=== PATIENT | female | born 1985 | race Caucasian/White ===

== ENCOUNTER 2017-02-08 23:29 | Emergency (ER) | payer SELFPAY ==
[~2017-02-08] VITALS: Ht 167.6 cm; Wt 70.9 kg
[2017-02-08 23:29] VITALS: BP 104/66
[~2017-02-08 23:29] MED LIST: CEPH-264 PO; DIPH25CA58 PO; METH4TAB2 PO; MULT1TAB52 PO; NAPR500T8 PO
--- NOTE | 2017-02-08 23:39 | ED.ADGEN ---
Past History Past Medical History: No Pertinent History Past Surgical History: No Surgical History Alcohol Use: Rarely Drug Use: None Adult General Chief Complaint Chief Complaint ".. I am nauseated..". " I having some burning or discomfort when I urinate.. " " Just tired..and sometime feel like I got a fever. " HPI HPI Patient is a 23 year old female who presents with the above hx and complaints of dysuria, nausea and malaise. Pt. has no vaginal discharge. Patient denies intake of bad food. Patient denies ill contacts. Patient denies any travel. Patient normally healthy. Review of Systems Review of Systems Constitutional: Subjective history of fever Eyes: Denies change in visual acuity, redness, or eye pain [] HENT: Denies nasal congestion or sore throat [] Respiratory: Denies cough or shortness of breath [] Cardiovascular: No additional information not addressed in HPI [] GI: Denies abdominal pain, vomiting, bloody stools or diarrhea [] Compliant of nausea. : hx of dysuria Musculoskeletal: Denies back pain or joint pain [] Integument: Denies rash or skin lesions [] Neurologic: Denies headache, focal weakness or sensory changes [] Endocrine: Denies polyuria or polydipsia [] Family History Family History Noncontributory Current Medications Current Medications Current Medications Medications (Trade) Dose Ordered Sig/Leila Start Time Stop Time Status Last Admin Dose Admin Ondansetron HCl (Zofran Odt) 8 mg 1X ONCE 02/09/17 00:30 02/09/17 00:31 DC 02/09/17 00:30 8 MG Trimethoprim/ Sulfamethoxazole (Bactrim Ds) 1 tab 1X ONCE 02/09/17 01:30 02/09/17 01:30 DC 02/09/17 01:10 1 TAB Allergies Allergies Allergies Coded Allergies Type Severity Reaction Last Updated Verified No Known Drug Allergies 07/29/14 No Physical Exam Physical Exam Constitutional: Well developed, well nourished, no acute distress, non-toxic appearance. [] HENT: Normocephalic, atraumatic, bilateral external ears normal, oropharynx moist, no oral exudates, nose normal. [] Eyes: PERRLA, EOMI, conjunctiva normal, no discharge. [] Neck: Normal range of motion, no tenderness, supple, no stridor. [] Cardiovascular:Heart rate regular rhythm, no murmur [] Lungs & Thorax: Bilateral breath sounds clear to auscultation [] Abdomen: Bowel sounds decreased, soft, no tenderness, no masses, no pulsatile masses. No rebound. Declined pelvic exam at this time. Skin: Warm, dry, no erythema, no rash. [] Back: No tenderness, no CVA tenderness. [] Extremities: No tenderness, no cyanosis, no clubbing, ROM intact, no edema. [] No psoas or obturator Neurologic: Alert and oriented X 3, normal motor function, normal sensory function, no focal deficits noted. [] Psychologic: Affect normal, judgement normal, mood normal. [] EKG EKG [] Radiology/Procedures Radiology/Procedures [] Course & Med Decision Making Course & Med Decision Making Pertinent Labs and Imaging studies reviewed. (See chart for details). Push vitamin C and fruit juices.. Push fluids. Take Tylenol and ibuprofen as needed for discomfort. Take Bactrim DS 1 tablet twice a day for 7 days. For marked dysuria may take Vicoprofen up 4 times a day. Follow-up primary care. Return if any concerns. For marked nausea may take Zofran 8 mg up 4 times a day. [] Final Impression Final Impression 1. Dysuria -cystitis 2. Hematuria 4. Nausea [] Problems: Dragon Disclaimer Dragon Disclaimer This electronic medical record was generated, in whole or in part, using a voice recognition dictation system. MARIZOL JONES MD Feb 08, 2017 23:39
[2017-02-09] MEDS ORDERED: ONDANSETRON ODT 4 MG TAB.RAPDIS PO ONE (00:30)
[2017-02-09] MEDS ORDERED: HYDR-79 PO (01:05)
[2017-02-09] MEDS ORDERED: ONDA8TAB12 PO (01:05)
[2017-02-09] MEDS ORDERED: SULF1TAB24 PO (01:05)
[2017-02-09] MEDS ORDERED: SMZ/TMP 800/160MG TABLET. PO ONE (01:30)
== END 2017-02-09 01:16 | disposition home or self-care (01) ==
LOC: ER 23:34
DX: N30.90 Cystitis, unspecified without hematuria (principal); R31.9 Hematuria, unspecified; R11.0 Nausea; R50.9 Fever, unspecified
CPT/HCPCS: 84703; 99283; Q0162; 81025